=== PATIENT | female | born 1965 | race Caucasian/White ===

== ENCOUNTER 2021-11-08 10:03 | Outpatient (CLI) | payer BC ==
[2021-11-08] MEDS ORDERED: Magnevist 469MG/ML 20 ML VIAL ONE (12:28)
== END 2021-11-08 10:04 | disposition home or self-care (01) ==
LOC: BICMRI 10:03
PROVIDERS: ATTEND Pharmacist
DX: G25.3 Myoclonus (principal)
CPT/HCPCS: 70553

== ENCOUNTER 2022-01-07 19:00 | Outpatient (CLI) | payer BC | END 2022-01-07 19:01 | disposition home or self-care (01) | LOC: SLEEPLAB 19:00 | PROVIDERS: ATTEND Pharmacist | DX: G47.61 Periodic limb movement disorder (principal); G47.33 Obstructive sleep apnea (adult) (pediatric); G25.81 Restless legs syndrome; F41.9 Anxiety disorder, unspecified; F32.9 Major depressive disorder, single episode, unspecified; R06.83 Snoring; G47.10 Hypersomnia, unspecified; G47.00 Insomnia, unspecified; Z86.69 Personal history of other diseases of the nervous system and sense organs | CPT/HCPCS: 95810 ==